=== PATIENT | female | born 1965 | race American Indian/Alaskan Native ===

== ENCOUNTER 2017-04-12 10:10 | Outpatient (CLI) | payer BC ==
--- NOTE | 2017-04-13 11:33 | Mammography Report ---
BILATERAL DIGITAL SCREENING MAMMOGRAM with CAD: 04/12/17 10:10:00 CLINICAL: Routine screening. COMPARISON:04/07/16 FINDINGS: The breasts are heterogeneously dense, which may obscure small masses. No mass, architectural distortion or suspicious calcifications. IMPRESSION: No mammographic evidence of malignancy. BI-RADS CATEGORY: 1 - - Negative RECOMMENDATION: Routine mammographic screening in one year. COMMENT: Patient follow-up letters are generated by our [employer] application.
== END 2017-04-12 10:11 | disposition home or self-care (01) ==
LOC: SPVWC 10:10
PROVIDERS: ATTEND Obstetrics & Gynecology
DX: Z12.31 Encounter for screening mammogram for malignant neoplasm of breast (principal)
CPT/HCPCS: 77067; G0202

== ENCOUNTER 2018-04-27 09:10 | Outpatient (CLI) | payer BC ==
--- NOTE | 2018-04-27 16:12 | Mammography Report ---
BILATERAL DIGITAL SCREENING MAMMOGRAM with CAD and BILATERAL DIGITAL BREAST TOMOSYNTHESIS (DBT) : 04/27/18 CLINICAL: Routine screening. COMPARISON:04/12/17 and 04/07/16 FINDINGS: The breasts are heterogeneously dense, which may obscure small masses. Right asymmetry and architectural distortion on image 113 of the right CC will series requires additional imaging.There is questionable correlation in the upper breast on image 23 of the MLO will series. No suspicious calcifications. The left breast is negative. A 7 mm circumscribed density in the upper-outer left breast correlates with a previously confirmed cyst at 2 o'clock. IMPRESSION: Right asymmetry and architectural distortion requiring additional workup. BI-RADS CATEGORY: 0 - - Needs Additional Imaging RECOMMENDATION: Recall for right ML and CC spot magnification views and targeted right upper outer breast ultrasound. COMMENT: Patient follow-up letters are generated by our [employer] application.
== END 2018-04-27 09:11 | disposition home or self-care (01) ==
LOC: SPVWC 09:10
PROVIDERS: ATTEND Obstetrics & Gynecology
DX: Z12.31 Encounter for screening mammogram for malignant neoplasm of breast (principal)
CPT/HCPCS: 77063; 77067

== ENCOUNTER 2018-05-10 08:34 | Outpatient (CLI) | payer BC ==
--- NOTE | 2018-05-10 11:18 | Mammography Report ---
RIGHT DIGITAL DIAGNOSTIC MAMMOGRAM with CAD and RIGHT BREAST ULTRASOUND: 05/10/18 CLINICAL: Recall for asymmetries identified by tomosynthesis. COMPARISON:04/27/15screening FINDINGS: ML and spot magnification MLOand CC views were performed and are negative. Ultrasound of the the upper outer right breast at demonstrated normal fibrofatty and fibroglandular structures. No mass, architectural distortion, cyst or shadowing. IMPRESSION: Probably benign asymmetries identified only by digital breast tomosynthesis (DBT) with negative 2D views and negative ultrasound.. BI-RADS CATEGORY: 3 - - Probably Benign RECOMMENDATION: 6 month followup right diagnostic mammogram with digital breast tomosynthesis (DBT) . ACR BI-RADS MAMMOGRAPHIC CODES: 0 = Needs additional imaging evaluation; 1 = Negative; 2 = Benign; 3 = Probably benign; 4 = Suspicious; 5 = Malignant; 6 = Known biopsy-proven malignancy COMMENT: 1. Dense breast tissue, i.e., adenosis, fibrocystic changes, etc., may obscure an underlying neoplasm. 2. Approximately 10% of cancers are not detected with mammography. 3. A negative mammography report should not delay biopsy if a clinically suspicious mass is present. COMMENT: Patient follow-up letters are generated via our [employer] application.
== END 2018-05-10 08:35 | disposition home or self-care (01) ==
LOC: SPVWC 08:34
PROVIDERS: ATTEND Obstetrics & Gynecology
DX: N64.89 Other specified disorders of breast (principal)